=== PATIENT | female | born 1980 | race Caucasian/White ===

== ENCOUNTER 2018-04-10 14:11 | Emergency (ER) | payer MEDICAID ==
[~2018-04-10] VITALS: Ht 152.4 cm; Wt 68.2 kg
[2018-04-10 14:41] VITALS: Ht 152.4 cm; Wt 68.2 kg
[2018-04-10] MEDS ORDERED: TOPAMAX100 MG PO (14:42)
[2018-04-10] MEDS ORDERED: DESERYL100 MG PO (14:43)
[2018-04-10] MEDS ORDERED: ATIVAN1 MG PO (14:43)
[2018-04-10] MEDS ORDERED: ZANAFLEX4 MG PO (14:44)
[2018-04-10] MEDS ORDERED: IBUPROFEN800 MG PO (14:44)
[2018-04-10] MEDS ORDERED: CYCLOBENZAPRINE10 MG PO (14:44)
[2018-04-10] MEDS ORDERED: OMEPRAZOLE20 M1 PO (14:45)
[2018-04-10] MEDS ORDERED: VYBRID (14:46)
[2018-04-10] MEDS ORDERED: BUSPAR 15 MG TA15 MG PO (14:47)
[2018-04-10 16:12] LABS: BASOPHILS 0.2 % (0-2); EOSINOPHILS 3.1 % (0-7); IMMATURE GRANULOCYTES 0.4 % (0-5); LYMPHOCYTES 24.9 % (15-50); MCH 29.9 pg (26.0-34.0); MCHC 33.3 g/dL (31.0-37.0); MCV 89.6 fL (80.0-100.0); MEAN PLATELET VOLUME 8.7 fL (7.4-10.4); MONOCYTES 5.2 % (2-11); NEUTROPHILS 66.2 % (40-80); RBC 4.02 10x6/uL (4.00-5.40); RDW 13.7 % (11.5-14.5); WBC 11.1 10x3/uL (4.8-10.8)
[2018-04-10 16:18] LABS: PLATELET COUNT 293 10x3/uL (130-400)
[2018-04-10 16:26] LABS: ALBUMIN 3.7 g/dL (3.4-5.0); ANION GAP 14.2 mmol/L (8-16); BILIRUBIN - TOTAL 0.18 mg/dL (0.2-1.3); CALCIUM 8.6 mg/dL (8.5-10.1); CARBON DIOXIDE 23.6 mmol/L (21.0-32.0); PROTEIN - SERUM 7.7 g/dL (6.4-8.2)
[2018-04-10 16:37] LABS: POTASSIUM - SERUM 2.8 mmol/L (3.5-5.1)
[2018-04-10] MEDS ORDERED: HYDROCODONE-APA1 TAB PO (17:32)
[2018-04-10 17:49] VITALS: BP 137/89
== END 2018-04-10 17:55 | disposition home or self-care (01) ==
LOC: D.ER 14:11
PROVIDERS: Emergency Medicine
DX: S02.609A Fracture of mandible, unspecified, initial encounter for closed fracture (principal); V49.9XXA Car occupant (driver) (passenger) injured in unspecified traffic accident, initial encounter; Y93.89 Activity, other specified; Y92.410 Unspecified street and highway as the place of occurrence of the external cause; S16.1XXA Strain of muscle, fascia and tendon at neck level, initial encounter; S50.12XA Contusion of left forearm, initial encounter; S40.012A Contusion of left shoulder, initial encounter; E87.6 Hypokalemia; R51 Headache; M25.512 Pain in left shoulder; F17.200 Nicotine dependence, unspecified, uncomplicated; M79.632 Pain in left forearm

== ENCOUNTER → 2018-09-19 10:38 | Outpatient (CLI) | payer MEDICAID ==
[2018-04-10 14:41] VITALS: BMI 29.3
[~2018-09-19 10:38] MED LIST: ATIVAN1 MG PO; BUSPAR 15 MG TA15 MG PO; CYCLOBENZAPRINE10 MG PO; DESERYL100 MG PO; HYDROCODONE-APA1 TAB PO; IBUPROFEN800 MG PO; OMEPRAZOLE20 M1 PO; TOPAMAX100 MG PO; VYBRID; ZANAFLEX4 MG PO
== END | disposition home or self-care (01) ==
LOC: D.RAD 10:38
DX: R13.10 Dysphagia, unspecified (principal); K44.9 Diaphragmatic hernia without obstruction or gangrene; R11.0 Nausea; R10.9 Unspecified abdominal pain

== ENCOUNTER → 2018-09-22 11:35 | Outpatient (CLI) | payer MEDICAID ==
[2018-04-10 14:41] VITALS: BMI 29.3
[2018-09-22 12:56] LABS: HCG SERUM NEGATIVE (NEGATIVE)
== END | disposition home or self-care (01) ==
LOC: D.NM 11:30
PROVIDERS: Internal Medicine Gastroenterology
DX: K21.9 Gastro-esophageal reflux disease without esophagitis (principal); R11.2 Nausea with vomiting, unspecified; R10.13 Epigastric pain; R13.10 Dysphagia, unspecified

== ENCOUNTER → 2018-09-26 07:26 | Day surgery (SDC) | payer MEDICAID ==
[2018-04-10 14:41] VITALS: BMI 29.3
== END | disposition home or self-care (01) ==
LOC: D.OPS 07:26
DX: K21.9 Gastro-esophageal reflux disease without esophagitis (principal); Z01.812 Encounter for preprocedural laboratory examination

== ENCOUNTER 2018-10-25 08:10 | Inpatient (IN) | payer MEDICAID ==
[2018-10-24 09:08] LABS: HEMATOCRIT 36.5 % (36.0-48.0); HEMOGLOBIN 11.9 g/dL (12-16); MCHC 32.6 g/dL (31.0-37.0); MCV 88.8 fL (80.0-100.0); RBC 4.11 10x6/uL (4.00-5.40); RDW 14.8 % (11.5-14.5); WBC 7.4 10x3/uL (4.8-10.8)
[~2018-10-25] VITALS: Ht 152.4 cm; Wt 75.0 kg
--- NOTE | 2018-10-25 02:00 | NUR ---
DURING ROUNDS PT SITTING UP IN BED, SHE ASKED IF I COULD UNHOOK HER SO SHE COULD USE THE BATHROOM, I UNHOOKED PT AND TOLD HER TO LET ME KNOW WHEN SHE WAS DONE I'D HOOK HER BACK UP, AFTER PT PT HIT THE LIGHT I WENT BACK SHE HAD PUT HER SHOES AND JACKET ON , I ASKED HER WAS SHE GOING SOMEWHERE STATED SHE WAS GOING OUT, ONCE AGAIN I REINFORMED TO PT ABOUT PAIN CONTROL.. WILL CONT TO MONITOR
[~2018-10-25 08:10] MED LIST changes: +ALBUTEROL SULF8.5 GM INH; +AMITIZA8 MCG PO; +AUGMENTIN 875-11 TAB PO; +CARAFATE1 G PO; +IMITREX50 MG PO; +PEPCID AC20 MG PO; +PROPRANOLOL HCL60 MG PO; +PROTONIX40 MG PO
[2018-10-25 08:42] VITALS: BP 122/68; BMI 33.8
[2018-10-25 10:16] LABS: HCG URINE NEGATIVE (NEGATIVE)
--- NOTE | 2018-10-25 12:42 | NUR ---
care transferred to antoine mann rn, report given
--- NOTE | 2018-10-25 12:44 | NUR ---
CARE ASSUMED FROM GALILEO MICHELLE RN
[2018-10-25 13:33] VITALS: BP 113/80; Ht 152.4 cm; Wt 75.0 kg
--- NOTE | 2018-10-25 13:43 | NUR ---
PT ARRIVED POST OP FROM RECOVERY. PT IS AWAKE ALERT AND ORIENTED SITTING UP IN BED C/O INCISIONAL PAIN. SET UP PTS V GROOVE CUTTER PUMP AND TEACHING PROVIDED PT VERBALIZED UNDERSTANDING. PT IN SEVERE PAIN NOW SO I ALSO ADMINISTERED THE PRN BOLUS ON THE V GROOVE CUTTER PUMP. ADMISSION WORKUP COMPLETED. PTS LAP INCISIONS ARE ALL CLEAN AND DRY WITH STERISTRIPS INTACT. VSS AND BEING MONITERED [id number] PER POST PROCEDURE PROTOCOL. PTS FAMILY MEMBER AT BEDSIDE. PT DENIES ANY CURRENT NEEDS AND WANTS TO TRY TO REST. CL IN REACH, BED IN LOWEST, SIDE RAILS X2 AND ARTURO PAD IN PLACE. WILL CTM.
--- NOTE | 2018-10-25 15:49 | NUR ---
PT SITTING UP IN BED RESTING QUIETLY STATES SLIGHT RELIEF WITH MORPHINE PAYROLL CONSULTANT BUT STILL C/O ABDOMEN PAIN. FAMILY AT BEDSIDE SCDS IN PLACE. NO CURRENT NEEDS. WILL CTM.
--- NOTE | 2018-10-25 17:10 | NUR ---
PTS UMBILICUS INCISION STARTED TO BLEED. BRUISING NOTED AROUND IT HOWEVER ITS NOT ACTIVELY BLEEDING. PT IS USING HER ABDOMINAL MUSCLES I ENCOURAGED HER TO SPLINT HERSELF FOR A COUGH AND BE VERY CAUTIOUS AND TRY TO NOT USE THEM TO HELP REDUCE IRRITATION. RE-ENFORCED STERISTRIPS AND WILL CTM IT.
--- NOTE | 2018-10-25 18:04 | NUR ---
NO FURTHER BLEEDING NOTED FROM UMBILICUS INCISION SITE. STERISTRIPS CDI. PT REQUESTED AND WAS PROVIDED WITH PRN BOLUS AND STATES IT IS HELPING. NO FURTHER NEEDS AT THIS TIME. CL IN REACH. WILL CTM.
--- NOTE | 2018-10-25 19:10 | NUR ---
RESUMING CARE. PT SITTING UP IN BED ON CELL PHONE BREATH SOUNDS EVEN AND UNLABORED, PT HAS IV IN LEFT FA TUMBLING MACHINE OPERATOR RUNNING MORPHINE 1MG , 5 INCISIONS ON ABDOMEN, "PT STATED THIS IS NOT WORKING" POINTING AT THE TUMBLING MACHINE OPERATOR PUMP ADVISED PT SHE WOULD NEED TO STAY CONNNECTED TO GET THE FULL EFFECT OF THE MED PT VOICED UNDERSTANDING, NO OTHER ISSUES NOTED CL IN REACH WILL CONT TO MONITOR
[2018-10-25 20:00] VITALS: BP 114/53
--- NOTE | 2018-10-25 20:00 | NUR ---
ENTERED PT RM TO GIVE MEDS PT STATED SHE WANTED TO BE UNHOOKED TO GO OUT TO SMOKE SHE STATED THIS WOULD BE HER LAST TIME FOR THE NIGHT, I ADVISED HER THAT IN ORDER TO GET CONTROL OF HER PAIN SHE WOULD NEED TO STAY CONNECTED TO THE PUMP , VOICED UNDERSTANDING AND STATED " THIS WILL BE MY LAST TIME I PROMISE" PUMP DISCONNECTED
--- NOTE | 2018-10-25 22:00 | NUR ---
ENTERED PTS ROOM SHE IS UP STANDING UP ON HER PHONE, STATED " I HAD TO GO TO TO THE BATHROOM AND NOBODY CAME " PT IS UP AD DIONNE I ASKED HER WHY DIDNT SHE HIT HER LIGHT SHE STATED I DID AND SHE CAME AND DIDNT HELP ME , DRIVER GUARD STATED PT NEVER ASKED TO GO TO THE BATHROOM SHE SAID THE PT STATED " I HIT THE LIGHT BY ACCIDENT", ADVISED PT IF SHE NEEDS ANYTHING JUST HIT THE LIGHT ILL COME SHE VOICED UNDERSTANDING CL IN REACH WILL CONT TO MONITOR
--- NOTE | 2018-10-25 22:30 | NUR ---
PT ASKED IF SHE COULD TAKE HER MEDS NIGHT MEDS SHE HAD IN HER PURSE TO HELP HER SLEEP I TOLD PT SHE IS UNABLE TO TAKE ANY OF HER PERSONAL MEDS AND IF SHE WAS UNABLE TO SEND THEM HOME I WOULD HAVE TO TAKE THEM AND LOCK THEM UP SHE TURNED OVER A MEDICATION BOX WITH 41 DIFFERENT TYPES OF PILLS
[2018-10-26] VITALS: BP 100/53
--- NOTE | 2018-10-26 02:00 | NUR ---
DURING ROUNDS PT SWAS SITTING UP IN BED ON HER PHONE , SHE ASKED IF I COULOD UNHOOK HER SO SHE COULD USED THE BATH ROOM , I UNHOOKED PT AND TOLD HER TO LET ME KNOW WHE SHE WAS DONE , WHEN PT WAS DONE I ENTERED HER ROOM SHE HAD PUT HER SHOES AND JACKET ON , I ASKED WAS SHE GOING SOMEWHERE SHE STATED IM GOING OUT, ONCE AGAIN I REINFORMED PAIN CONTROL SHE VOICED UNDERSTANDING .. WILL CONT TO DERIANIOR
--- NOTE | 2018-10-26 03:00 | NUR ---
PT HIT LIGHT ASKED TO BE UNHOOKED TO GO OUT ,UN HOOKED PT AND REINFORMED ABOUT PAIN CONTROL SHE STATED SHE IS HAVE LITTLE TO NO PAIN NOW ... MALE FAMILY MEMBER AT BEDSIDE
[2018-10-26 04:00] VITALS: BP 106/57
--- NOTE | 2018-10-26 04:17 | NUR ---
I have reviewed this patient and I concur with the Shift Assessment completed by the Licensed Practical Nurse today this shift.
--- NOTE | 2018-10-26 04:43 | NUR ---
PT STATED SHE WANTED HER MALE FAMILY MEMBER TO TAKE THE HOME TURNED OVER 41 PILLS TO MALE FAMILY MEMBER
[2018-10-26 05:51] LABS: BASOPHILS 0.4 % (0-2); EOSINOPHILS 2.3 % (0-7); HEMATOCRIT 31.4 % (36.0-48.0); HEMOGLOBIN 10.1 g/dL (12-16); IMMATURE GRANULOCYTES 0.3 % (0-5); LYMPHOCYTES 37.2 % (15-50); MCH 28.6 pg (26.0-34.0); MCHC 32.2 g/dL (31.0-37.0); MEAN PLATELET VOLUME 9.1 fL (7.4-10.4); MONOCYTES 7.7 % (2-11); NEUTROPHILS 52.1 % (40-80); PLATELET COUNT 259 10x3/uL (130-400); RBC 3.53 10x6/uL (4.00-5.40); RDW 14.8 % (11.5-14.5)
[2018-10-26 06:15] LABS: ALBUMIN 2.7 g/dL (3.4-5.0); ALKALINE PHOSPHATASE 79 U/L (46-116); ALT (SGPT) 72 U/L (10-68); BILIRUBIN - TOTAL 0.21 mg/dL (0.2-1.3); CALC OSMOLALITY 279 mosm/kg (275-300); CALCIUM 7.6 mg/dL (8.5-10.1); CARBON DIOXIDE 23.7 mmol/L (21.0-32.0); CHLORIDE - SERUM 108 mmol/L (98-107); CREATININE - SERUM 0.7 mg/dL (0.6-1.3); GLUCOSE 90 mg/dL (74-106); POTASSIUM - SERUM 3.3 mmol/L (3.5-5.1); PROTEIN - SERUM 5.5 g/dL (6.4-8.2); SODIUM 141 mmol/L (136-145); UREA NITROGEN 11 mg/dL (7-18); eGFR NON AFRICAN AMERICAN > 90 mL/min (90-120)
[2018-10-26] MEDS ORDERED: HYDROCODON-ACE1 EAC7 PO (08:54)
--- NOTE | 2018-10-26 10:01 | NUR ---
RECIEVED ORDER FOR PT DISCHARGE. REVIEWED DISCHARGE INSTRUCTIONS WITH PT, ALL QUESTIONS ANSWERED. PIV REMOVED WITH CATHETER TIP INTACT. PT STATES HER BOYFRIEND WILL BE HERE AROUND NOON.
--- NOTE | 2018-10-26 10:19 | NUR ---
PT LEFT HOSPITAL WITH HER BOYFRIEND.
== END 2018-10-26 10:21 | disposition home or self-care (01) | DRG 328 ==
LOC: D.OPS 08:10 → D.M3 08:10 → D.OPS 10:00 → D.PAN 12:15 → D.M3 12:20 → D.OPS 12:21 → D.M3 12:22 → D.OPS 12:25 → D.M3 10-26 10:21
PROVIDERS: Anesthesiology; ADMIT Surgery; ATTEND Surgery
PROC: 0DV44ZZ Restriction of Esophagogastric Junction, Percutaneous Endoscopic Approach (ICD-10-PCS; principal; 2018-10-25 10:00)
PROC: 0BQT4ZZ Repair Diaphragm, Percutaneous Endoscopic Approach (ICD-10-PCS; 2018-10-25 10:00)
DX: K44.9 Diaphragmatic hernia without obstruction or gangrene (principal); K21.9 Gastro-esophageal reflux disease without esophagitis; F17.200 Nicotine dependence, unspecified, uncomplicated

== ENCOUNTER → 2019-01-19 07:48 | Outpatient (CLI) | payer MEDICAID ==
[2018-10-25 13:33] VITALS: BMI 32.2
[~2019-01-19 07:48] MED LIST changes: +HYDROCODON-ACE1 EAC7 PO
== END | disposition home or self-care (01) ==
LOC: D.RAD 12-29 08:00 → D.US 12-29 09:00 → D.RAD 01-05 08:00 → D.US 01-05 09:00 → D.RAD 01-12 10:00 → D.US 01-12 11:00
PROVIDERS: ATTEND Internal Medicine Gastroenterology
DX: K22.4 Dyskinesia of esophagus (principal); R10.11 Right upper quadrant pain; R10.31 Right lower quadrant pain

== ENCOUNTER → 2019-01-29 08:29 | Outpatient (CLI) | payer MEDICAID ==
[2018-10-25 13:33] VITALS: BMI 32.2
== END | disposition home or self-care (01) ==
LOC: D.CT 08:29
PROVIDERS: ATTEND Internal Medicine Gastroenterology
DX: R93.2 Abnormal findings on diagnostic imaging of liver and biliary tract (principal); K76.89 Other specified diseases of liver

== ENCOUNTER 2020-12-19 21:00 | Outpatient (CLI) | payer BC ==
[2018-10-25 13:33] VITALS: BMI 32.2
== END 2020-12-19 23:59 | disposition home or self-care (01) ==
LOC: D.MAMMO 21:00
PROVIDERS: ATTEND Family Medicine
DX: Z12.31 Encounter for screening mammogram for malignant neoplasm of breast (principal)

== ENCOUNTER 2021-01-05 17:00 | Outpatient (CLI) | payer BC ==
[2018-10-25 13:33] VITALS: BMI 32.2
== END 2021-01-05 23:59 | disposition home or self-care (01) ==
LOC: D.MAMMO 17:00
PROVIDERS: ATTEND Family Medicine
DX: R92.8 Other abnormal and inconclusive findings on diagnostic imaging of breast (principal)